=== PATIENT | female | born 1955 | race Caucasian/White ===

== ENCOUNTER 2017-01-02 11:50 | Emergency (ER) | payer BC ==
[~2017-01-02] VITALS: Ht 170.2 cm; Wt 69.4 kg
[~2017-01-02 11:50] MED LIST: 3-IN3MIS; ESTR1TAB12 PO; LEVO125T3 PO; MEDR2.5T19 PO; NORC10TA2 PO; VALA1TAB PO; WHEEMIS3 XX; Z.0.WALKERFRONT
[2017-01-02 12:04] VITALS: BP 161/75; PULSE 86; RESP 15; TEMP 98.2; O2SAT 95
--- NOTE | 2017-01-02 12:42 | PD ---
HPI Chief Complaint: Pain: Acute or Chronic Time Seen by Provider: 12:05 Travel History International Travel<30 days: No Contact w/Intl Traveler<30days: No Traveled to known affect area: No History of Present Illness HPI 61-year-old female in the emergency department for evaluation of right lateral rib pain status post fall. Patient reports yesterday evening she slipped falling onto the right side her ribs made impact with the floor. She denies head injury. No loss of consciousness. She reports pain in the right ribs anterior/lateral aspect, nonradiating, worse with deep breath and inspiration, no alleviating factors, severity 4 out of 10. Patient denies headache, chest pain, shortness of breath, abdominal pain. PFSH Past Medical History Arthritis: Yes (HIPS) Asthma: No Autoimmune Disease: No Anxiety: Yes Depression: No Heart Rhythm Problems: No Cancer: Yes (BASIL CELLS) Cardiovascular Problems: No High Cholesterol: No Chemotherapy: No Chest Pain: No Congestive Heart Failure: No COPD: No Cerebrovascular Accident: No Diabetes: No Endocrine: No GERD: No Genitourinary: No Headaches: Yes Hepatitis: No Hiatal Hernia: No Immune Disorder: No Implanted Vascular Access Dvce: Yes Kidney Stones: No Musculoskeletal: Yes (LT FIFTH FINGER FX., RT HAIRLINE FOOT FX.) Neurologic: No Psychiatric: No Reproductive: No Respiratory: No Migraines: Yes Radiation Therapy: No Renal Failure: No Seizures: No Sickle Cell Disease: No Sleep Apnea: No Ulcer: No Tetanus Vaccination: < 5 Years Influenza Vaccination: Yes ?: Not Menopausal: Yes Past Surgical History Abdominal Surgery: No AICD: No Arteriovenous Shunt: No Body Medical Devices: BREAST IMPLANTS, RIGHT SHOULDER Cardiac Surgery: No Ear Surgery: No Eye Surgery: No Genitourinary Surgery: No Gynecologic Surgery: Yes (BREAST IMPLANTS) Hysterectomy: No Insulin Pump: No Joint Replacement: Yes (R SHOULDER) Oral Surgery: Yes (TONSILLECTOMY) Pacemaker: No Thoracic Surgery: No Tonsillectomy: Yes (1960) Other Surgery: Yes (BREAST IMPLANT REPLACEMENT) Social History Alcohol Use: Yes (Champagne daily) Tobacco Use: Yes (1 PPD) Substance Use: No Allergies-Medications (Allergen,Severity, Reaction): Coded Allergies: Penicillin (Verified Allergy, Severe, Anaphylaxis , 01/02/17) Adhesives (Verified Allergy, Unknown, Hives, Itching, 01/02/17) Latex (Verified Allergy, Unknown, Hives, Itching, 01/02/17) Morphine (Verified Adverse Reaction, Intermediate, Vomitting , 01/02/17) Reported Meds & Prescriptions Reported Meds & Active Scripts Active Reported Valacyclovir Hcl (Valacyclovir HCl) 1 Gm Tab 1 Gm PO DAILY Medroxyprogesterone Aceta (Medroxyprogesterone Acetate) 2.5 Mg Tab 2.5 Mg PO DAILY Estrace (Estradiol) 1 Mg Tab 1 Mg PO DAILY Levothyroxine 125 mcg (Levothyroxine Sodium) 125 Mcg Tab 125 Mcg PO DAILY Review of Systems Except as stated in HPI: all other systems reviewed are Neg General / Constitutional: No: Fever Eyes: No: Visual changes HENT: No: Headaches Cardiovascular: No: Chest Pain or Discomfort Respiratory: No: Shortness of Breath Gastrointestinal: No: Abdominal Pain Genitourinary: No: Dysuria Neurologic: No: Weakness Physical Exam Narrative GENERAL: Alert, well-appearing female in no acute distress. SKIN: Focused skin assessment warm/dry. No areas of ecchymosis. HEAD: Atraumatic. Normocephalic. EYES: Pupils equal and round. No scleral icterus. No injection or drainage. NECK: Trachea midline. No JVD. Midline cervical spine tenderness. CARDIOVASCULAR: Regular rate and rhythm. No murmur appreciated. RESPIRATORY: No accessory muscle use. Clear to auscultation. Breath sounds equal bilaterally. CHEST wall: Point tenderness to right lateral ribs, no crepitus, no overlying ecchymosis GASTROINTESTINAL: Abdomen soft, non-tender, nondistended. Hepatic and splenic margins not palpable. NEUROLOGICAL: Awake and alert. No obvious cranial nerve deficits. Motor grossly within normal limits. Normal speech. PSYCHIATRIC: Appropriate mood and affect; insight and judgment normal. Data Data Last Documented VS Vital Signs Date Time Temp Pulse Resp B/P Pulse Ox O2 Delivery O2 Flow Rate FiO2 01/02/17 12:39 20 01/02/17 12:04 98.2 86 161/75 95 Orders Chest, Pa & Lat (01/02/17 ) Ketorolac Inj (Toradol Inj) (01/02/17 13:00) MDM Medical Decision Making Medical Screen Exam Complete: Yes Emergency Medical Condition: Yes Differential Diagnosis Right rib painchest wall contusion versus rib fracture Narrative Course 61-year-old female presents emergency department for evaluation of right rib pain status post mechanical fall yesterday evening. She denies head injury. There was no loss of consciousness. Patient has pain to the right lateral ribs. No shortness of breath. Breath sounds are clear and equal bilaterally. Chest x-ray pending Chest x-ray negative for pneumothorax, rib fracture. This was discussed with patient. She will be treated for rib contusion. Return precautions discussed. Patient agrees to treatment plan Diagnosis Primary Impression: Rib contusion Qualified Code: S20.211A - Rib contusion, right, initial encounter Referrals: Primary Care Physician Additional Instructions: Take [id number] Motrin [id number] milligrams every 6 hours as needed for pain. Follow-up with her primary care doctor for recheck. Return to the emergency department if you have increasing pain, shortness of breath, chest pain. Disposition: 01 DISCHARGE HOME Condition: Stable Tammie Carlisle Jan 02, 2017 12:42
--- NOTE | 2017-01-02 12:47 | RADRPT ---
EXAM DATE/TIME: 01/02/2017 12:35 [facility] COMPARISON: No previous studies available for comparison. INDICATIONS : Right side rib pain post fall yesterday MEDICAL HISTORY : None. SURGICAL HISTORY : Breast implants ENCOUNTER: Initial ACUITY: 1 day PAIN SCORE: 8/10 LOCATION: Right upper ribs FINDINGS: There are calcified lymph nodes in the right hilum and paratracheal region. Mild hyperinflation. Righ t shoulder arthroplasty. Lungs are clear. Heart size normal. Aortic calcification. CONCLUSION: No acute disease. Hood Bojorquez MD on January 02, 2017 at 12:44 Board Certified Radiologist. This report was verified electronically.
[2017-01-02] MEDS ORDERED: KETOROLAC TROMETHAMINE 60 MG/2 ML (IM) VIAL IM ONE (13:00)
== END 2017-01-02 13:25 | disposition home or self-care (01) ==
LOC: PHEFT 11:50
DX: S20.211A Contusion of right front wall of thorax, initial encounter (principal); M13.851 Other specified arthritis, right hip; M13.852 Other specified arthritis, left hip; W01.0XXA Fall on same level from slipping, tripping and stumbling without subsequent striking against object, initial encounter
CPT/HCPCS: 71020; 96372; 99284; J1885